=== PATIENT | female | born 1980 | race Caucasian/White ===

== ENCOUNTER 2019-05-05 23:47 | Emergency (ER) | payer OTHER, MEDICAID ==
[~2019-05-05] VITALS: Ht 170.2 cm; Wt 136.1 kg
[2019-05-06] MEDS ORDERED: PROPRANOLOL 20M20 M1 PO
[2019-05-06] MEDS ORDERED: METFORMIN HCL500 M3 PO
[2019-05-06] MEDS ORDERED: PRILOSEC OTC20 MG PO (00:01)
[2019-05-06 01:26] VITALS: BP 141/91
== END 2019-05-06 01:33 | disposition home or self-care (01) ==
LOC: M.ERS 23:47
DX: S51.812A Laceration without foreign body of left forearm, initial encounter (principal); G43.909 Migraine, unspecified, not intractable, without status migrainosus; Z98.51 Tubal ligation status; Z88.0 Allergy status to penicillin; Z88.1 Allergy status to other antibiotic agents; W25.XXXA Contact with sharp glass, initial encounter; Y93.89 Activity, other specified; Y92.89 Other specified places as the place of occurrence of the external cause; Y99.8 Other external cause status

== ENCOUNTER 2019-06-14 13:49 | Emergency (ER) | payer OTHER, MEDICAID ==
[~2019-06-14] VITALS: Ht 170.2 cm; Wt 135.2 kg
[~2019-06-14 13:49] MED LIST: METFORMIN HCL500 M3 PO; PRILOSEC OTC20 MG PO; PROPRANOLOL 20M20 M1 PO
[2019-06-14 14:46] LABS: INFLUENZA A ANTIGEN Negative (Negative); INFLUENZA B ANTIGEN Negative (Negative)
[2019-06-14] MEDS ORDERED: CEFDINIR300 MG PO (15:22)
[2019-06-14 16:00] VITALS: BP 154/90
== END 2019-06-14 16:05 | disposition home or self-care (01) ==
LOC: M.ERS 13:49
PROVIDERS: Nurse Practitioner Family
DX: J02.9 Acute pharyngitis, unspecified (principal); G43.909 Migraine, unspecified, not intractable, without status migrainosus; Z88.0 Allergy status to penicillin; Z88.1 Allergy status to other antibiotic agents; Z88.8 Allergy status to other drugs, medicaments and biological substances; Z98.51 Tubal ligation status

== ENCOUNTER 2019-06-18 14:24 | Emergency (ER) | payer OTHER, MEDICAID ==
[~2019-06-18] VITALS: Ht 170.2 cm; Wt 131.5 kg
[~2019-06-18 14:24] MED LIST changes: +CEFDINIR300 MG PO
[2019-06-18 15:37] LABS: INFLUENZA A ANTIGEN Negative (Negative); INFLUENZA B ANTIGEN Negative (Negative)
[2019-06-18] MEDS ORDERED: TESSALON PERLE100 MG PO (15:50)
[2019-06-18] MEDS ORDERED: PROMETHAZI6.25 MG/5 PO (15:50)
[2019-06-18] MEDS ORDERED: TYLENOL WITH CO1 TA1 PO (15:50)
[2019-06-18] MEDS ORDERED: CIPROFLOXIN HC2.5 M1 OPHTHALMIC (15:50)
[2019-06-18 16:13] VITALS: BP 161/104
== END 2019-06-18 16:14 | disposition home or self-care (01) ==
LOC: M.ERS 14:24
PROVIDERS: Nurse Practitioner Family
DX: J06.9 Acute upper respiratory infection, unspecified (principal); H10.9 Unspecified conjunctivitis; G43.909 Migraine, unspecified, not intractable, without status migrainosus; Z88.1 Allergy status to other antibiotic agents; Z88.0 Allergy status to penicillin; Z88.8 Allergy status to other drugs, medicaments and biological substances; Z98.51 Tubal ligation status